=== PATIENT | female | born 2000 | race Two or more races ===

== ENCOUNTER → 2025-06-06 | Emergency (ER) | payer OTHER ==
[~2025-06-06] VITALS: Ht 162.6 cm; Wt 73.5 kg
[~2025-06-06] MED LIST: ACETAMINOPHEN 500 MG GEL..CAP PO ONE
[2025-06-06 17:34] LABS: BASO % 0.4 % (0.1-1.2); EOS # 0.35 (0.04-0.54); EOS % 4.6 % (0.7-7.0); LYMPH # 1.23 (1.18-3.74); LYMPH % 16.2 % (19.3-53.1); MEAN PLATELET VOLUME 9.30 fl (9.4-12.4); MONO # 0.81 (0.24-0.82); MONO % 10.7 % (4.7-12.5); NEUT # 5.10 (1.56-6.13); NEUT % 67.4 % (34.0-71.1); RED CELL DISTRIBUTION WIDTH 12.3 % (11.6-14.4)
[2025-06-06 17:36] LABS: URINE APPEARANCE Turbid; URINE BILIRRUBIN Negative (NEGATIVE); URINE BLOOD Negative; URINE COLOR Yellow; URINE GLUCOSE Negative (NEGATIVE); URINE KETONE Negative (NEGATIVE); URINE LEUKOCYTE Large; URINE NITRATE Negative; URINE PROTEIN Negative (NEGATIVE); URINE UROBILINOGEN 0.2 E.U./dl
[2025-06-06 17:43] LABS: URINE EPITHELIAL CELLS 39.4 uL (0.0-38.8); URINE RBC 22.6 uL (0.0-20.8); URINE WBC 101.5 uL (0.0-23.2)
[2025-06-06 17:46] LABS: URINE CAST 0.42 uL (0.0-1.40)
[2025-06-06 17:54] LABS: COVID-19 AG NEGATIVE (NEGATIVE)
[2025-06-06 18:19] LABS: BUN CREA RATIO 19.0 (7.0-25.0); CREATININE SERUM 0.58 mg/dL (0.55-1.02); GFR 125.66; GLUCOSE FASTING 79.0 mg/dL (65-100); OSMOLALITY SERUM 280.0 MOSM/KG (275-295)
== END | disposition home or self-care (01) ==
LOC: ER 14:39
PROVIDERS: General Practice
DX: O26.891 Other specified pregnancy related conditions, first trimester (principal); Z3A.13 13 weeks gestation of pregnancy; B34.9 Viral infection, unspecified; R05.8 Other specified cough; Z20.822 Contact with and (suspected) exposure to COVID-19

== ENCOUNTER 2025-06-20 18:52 | Emergency (ER) | payer OTHER ==
[~2025-06-20] VITALS: Ht 162.6 cm; Wt 86.2 kg
[2025-06-20] MEDS ORDERED: PRENATAL + DHA1 EAC1 PO (19:40)
[2025-06-20 19:41] VITALS: BP 131/81; O2SAT 99
[2025-06-20] MEDS ORDERED: FOLIC ACID0.4 MG PO (19:41)
[2025-06-20 21:41] LABS: URINE APPEARANCE Clear; URINE BILIRRUBIN Negative (NEGATIVE); URINE BLOOD Negative; URINE COLOR Yellow; URINE GLUCOSE Negative (NEGATIVE); URINE KETONE Trace (NEGATIVE); URINE LEUKOCYTE Small; URINE NITRATE Negative; URINE PROTEIN Trace (NEGATIVE); URINE UROBILINOGEN 0.2 E.U./dl
[2025-06-20 21:45] LABS: URINE BACTERIA 4468.2 uL (0.0-1933); URINE EPITHELIAL CELLS 63.7 uL (0.0-38.8); URINE RBC 16.5 uL (0.0-20.8); URINE WBC 228.2 uL (0.0-23.2)
[2025-06-20 22:03] LABS: BASO % 0.4 % (0.1-1.2); EOS # 0.60 (0.04-0.54); EOS % 4.8 % (0.7-7.0); LYMPH # 2.25 (1.18-3.74); LYMPH % 18.1 % (19.3-53.1); MEAN PLATELET VOLUME 9.00 fl (9.4-12.4); MONO # 0.98 (0.24-0.82); MONO % 7.9 % (4.7-12.5); NEUT # 8.46 (1.56-6.13); NEUT % 68.0 % (34.0-71.1); RED CELL DISTRIBUTION WIDTH 12.4 % (11.6-14.4)
[2025-06-20] MEDS ORDERED: ACETAMINOPHEN 500 MG GEL..CAP PO ONE ×2 (22:15→22:47)
[2025-06-20 22:28] LABS: URINE CAST 0.28 uL (0.0-1.40)
[2025-06-20 22:29] LABS: TYPE CELLS SQUAMOUS; URINE CRYSTALS FEW /HPF; URINE MUCUS MODERATE
[2025-06-20 22:40] LABS: ALT/SGPT 31.0 U/L (12-78); AST/SGOT 21.0 U/L (15-37); BILIRUBIN TOTAL 0.3 mg/dL (0.3-1.2); BUN CREA RATIO 22.0 (7.0-25.0); CREATININE SERUM 0.51 mg/dL (0.55-1.02); GFR 145.77; GLOBULINA 3.4 G/DL (2.4-3.5); GLUCOSE FASTING 93.0 mg/dL (65-100); OSMOLALITY SERUM 278.0 MOSM/KG (275-295)
[2025-06-20] MEDS ORDERED: CEFUROXIME250 MG PO (23:08)
[2025-06-20] MEDS ORDERED: CEFAZOLIN SODIUM 1,000 MG VIAL IM ONE (23:15)
[2025-06-20] MEDS ORDERED: CEFAZOLIN SODIUM 1,000 MG VIAL ONE (23:29)
== END 2025-06-21 00:37 ==
LOC: ER 18:53
PROVIDERS: Student in an Organized Health Care Education/Training Program
DX: O23.30 Infections of other parts of urinary tract in pregnancy, unspecified trimester (principal); Z3A.15 15 weeks gestation of pregnancy; N39.0 Urinary tract infection, site not specified; M54.50 Low back pain, unspecified

== ENCOUNTER 2025-06-21 10:46 | Outpatient (CLI) | payer OTHER ==
[~2025-06-21 10:46] MED LIST changes: -ACETAMINOPHEN 500 MG GEL..CAP PO ONE; +CEFUROXIME250 MG PO; +FOLIC ACID0.4 MG PO; +PRENATAL + DHA1 EAC1 PO
== END 2025-06-21 10:49 | disposition home or self-care (01) ==
LOC: SONOGRAMA 10:46
PROVIDERS: ATTEND Specialist
DX: N20.9 Urinary calculus, unspecified (principal); Z34.00 Encounter for supervision of normal first pregnancy, unspecified trimester